=== PATIENT | female | born 1985 | race Caucasian/White ===

== ENCOUNTER 2023-03-01 03:53 | Emergency (ER) | payer BC, SELFPAY ==
[2023-03-01 04:02] VITALS: BP 126/98; PULSE 65; RESP 14; TEMP 36.3; O2SAT 100
[2023-03-01 05:08] VITALS: BP 124/82; PULSE 65; RESP 16; O2SAT 100
--- NOTE | 2023-03-01 06:56 | ED.GENADULT ---
HPI - General Adult General Chief complaint: Ear Stated complaint: right ear infection Time Seen by Provider: 03/01/23 06:49 History of Present Illness HPI narrative: Is a 37-year-old female presenting ED with a chief complaint of right ear pain. she was diagnosed with acute otitis media approximately 2 weeks ago and completed 10 day course of amoxicillin. She continued to have ear pain when saw a urgent care on approximately 3 days ago. At that time she was diagnosed with a ruptured tympanic membrane. She was started on ear drops. She does not know which ones. However she has continued to have pain despite Motrin use. The patient is here because she has been having increased pain in her ear. Additionally she believes she is getting another ear infection. She does not have fever chills nausea vomiting diarrhea Related Data Home Medications Medication Instructions Recorded Confirmed cholecalciferol (vitamin D3) 125 125 mcg PO DAILY 12/28/22 03/01/23 mcg (5,000 unit) capsule sertraline 100 mg tablet 100 mg PO DAILY 12/28/22 03/01/23 Allergies Allergy/AdvReac Type Severity Reaction Status Date / Time No Known Allergies Allergy Verified 03/01/23 03:54 COUNTS INCLUDE 234 BEDS AT THE [facility] Family History Family History Father Hypertension Family history of coronary artery disease Mother Hypertension Other Cerebrovascular accident Social History Social History Smoking status: Never smoker Second hand tobacco smoke exposure: No Alcohol intake: current Alcohol use details: rare Substance use: never Substance use type: does not use Living arrangements: with family Occupation/Education: occupation Gender identity (if verbalized by the patient): Female Exam Narrative: APPEARANCE: No apparent distress. Head: exam of the right ear revealed a medium-sized rupture of the tympanic membrane with some erythema of the auditory canal. No purulent discharge. Some tenderness with traction on the pinna. EYES: EOMI, NOSE: Atraumatic NECK: Trachea midline RESPIRATORY: No increased rate of breathing CARDIOVASCULAR: RRR, ABDOMINAL: Non-distended MUSCULOSKELETAl: No obvious deformities NEURO: Alert. Moving 4/4 extremities SKIN:: Warm, dry. Normal color PSYCHIATRIC: Normal affect Course Vital Signs Vital signs: Vital Signs Temperature 97.4 F L 03/01/23 04:02 Pulse Rate 65 03/01/23 04:02 Respiratory Rate 14 03/01/23 04:02 Blood Pressure 126/98 H 03/01/23 04:02 Pulse Oximetry 100 03/01/23 04:02 Oxygen Delivery Room Air 03/01/23 04:02 Temperature 97.4 F L 03/01/23 04:02 Pulse Rate 65 03/01/23 05:08 Respiratory Rate 16 03/01/23 05:08 Blood Pressure 124/82 03/01/23 05:08 Pulse Oximetry 100 03/01/23 05:08 Oxygen Delivery Room Air 03/01/23 04:02 Medical Decision Making MDM Narrative Medical decision making narrative: -Presentation: 37-year-old with ear pain -DDX includes but is not limited to: otitis media, tympanic membrane rupture, otitis externa -Co-morbidities complicating care: frequent ear infection -Social determinants of health: 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 Dx tests considered but not ordered: None -Procedures: none -Interventions: [place] 5 mg, Augmentin -Shared decision making / Disposition: patient will be started on Augmentin. She should continue her ear drops. She will be given ENT follow-up. -RX Motrin, Tylenol, Augmentin, [place] Vital Signs Vital Signs: Vital Signs Temperature 97.4 F L 03/01/23 04:02 Pulse Rate 65 03/01/23 04:02 Respiratory Rate 14 03/01/23 04:02 Blood Pressure 126/
[2023-03-01] MEDS: HYDROcodone/acetaminophen (*CRX) 5-325 MG TABLET 1 TAB PO (07:18)
[2023-03-01] MEDS: AMOXICILLIN/CLAVULANATE K 875-125 MG TAB 1 TABLET PO (07:25)
[2023-03-01 07:27] VITALS: BP 127/87; PULSE 63; RESP 15; O2SAT 99
== END 2023-03-01 07:28 | disposition home or self-care (01) ==
PROVIDERS: Emergency Provider Emergency Medicine; PCP Family Medicine
DX: H72.91 Unspecified perforation of tympanic membrane, right ear (principal)
CPT/HCPCS: 99283; A9270